=== PATIENT | female | born 1940 | race Caucasian/White ===

== ENCOUNTER 2017-01-29 09:22 | Emergency (ER) | payer OTHER ==
[~2017-01-29] VITALS: Ht 152.4 cm; Wt 69.4 kg
--- NOTE | 2017-01-29 10:40 | REP ---
Clinical: Pain and swelling . Technique: Abbott scale and color Doppler evaluation using linear high frequency transducer. Findings: Ultrasound examination of the right lower extremity deep venous structures from the common femoral vein to the popliteal vein demonstrates normal compressibility flow and wave patterns in response to respiration and augmentation. There is no evidence for deep venous thrombosis. Impression: No evidence for deep venous thrombosis. Signed by Luis A Cade MD 01/29/2017 10:31 A
[2017-01-29 11:05] VITALS: BP 135/90
== END 2017-01-29 11:07 | disposition home or self-care (01) ==
LOC: M ED 09:22
DX: S86.811A Strain of other muscle(s) and tendon(s) at lower leg level, right leg, initial encounter (principal); X58.XXXA Exposure to other specified factors, initial encounter; Y92.89 Other specified places as the place of occurrence of the external cause; Y93.89 Activity, other specified; Y99.8 Other external cause status

== ENCOUNTER → 2017-02-14 | Outpatient (REF) | payer OTHER ==
[2017-02-14 21:23] LABS: ALBUMIN/GLOBULIN RATIO 1.29 (1.00-1.93); ALKALINE PHOSPHATASE 100 U/L (45-117); ALT/SGPT 19 U/L (12-78); ANION GAP 7 MEQ/L (8-16); AST/SGOT 19 U/L (15-37); BILIRUBIN,TOTAL 0.4 MG/DL (0.2-1.0); BLOOD UREA NITROGEN 14 MG/DL (7-18); CALCIUM LEVEL 8.7 MG/DL (8.8-10.2); CARBON DIOXIDE LEVEL 28 MEQ/L (21-32); CHLORIDE LEVEL 105 MEQ/L (98-107); CHOLESTEROL LEVEL 190 MG/DL (<200); CREATININE FOR GFR 0.76 MG/DL (0.55-1.02); GLOMERULAR FILTRATION RATE > 60.0 (>39); GLUCOSE, FASTING 96 MG/DL (83-110); POTASSIUM SERUM 4.8 MEQ/L (3.5-5.1); SODIUM LEVEL 140 MEQ/L (136-145); TOTAL PROTEIN 7.1 GM/DL (6.4-8.2); TRIGLYCERIDES LEVEL 56 MG/DL (<150)
[2017-02-14 21:28] LABS: MEAN CORPUSCULAR HEMOGLOBIN 30.5 pg (27.0-33.0); MEAN CORPUSCULAR HGB CONC 33.4 g/dl (32.0-36.5); MEAN CORPUSCULAR VOLUME 91.5 fl (80.0-96.0); RED CELL DISTRIBUTION WIDTH 13.5 % (11.5-14.5); WHITE BLOOD COUNT 5.7 K/mm3 (4.0-10.0)
== END ==
LOC: M LABDRAW1 18:08
PROVIDERS: ATTEND Nurse Practitioner Adult Health
DX: M25.561 Pain in right knee (principal); R05 Cough; L98.9 Disorder of the skin and subcutaneous tissue, unspecified; Z68.30 Body mass index [BMI] 30.0-30.9, adult

== ENCOUNTER → 2017-02-14 | Outpatient (CLI) | payer OTHER ==
--- NOTE | 2017-02-14 15:22 | REP ---
PA and lateral chest: There are no comparisons. The lung hoyt are clear. The cardiac size is normal The rubi, mediastinum, and bony thorax are unremarkable. Impression: Negative PA and lateral chest. Signed by Roderick Patterson MD 02/14/2017 12:43 P
--- NOTE | 2017-02-14 15:22 | REP ---
Right knee five views: There is faintly visible chondrocalcinosis suggestive of CPPD. There is mild joint space narrowing of the medial compartment and slight osteophytic formation of the medial compartment and patellofemoral compartment. Mineralization is normal. The There is a soft tissue calcification posteromedially, possibly a calcified node. The posterior medial muscle groups of the distal femur appear edematous. This should be correlated with clinical findings. Impression: CPPD. 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 Possible soft tissue edema of the posterior and medial muscle groups of the distal femur. Correlate clinically. Depending on clinical findings consider MRI follow up. Signed by Roderick Patterson MD 02/14/2017 12:46 P
== END ==
LOC: M WUC 12:02
PROVIDERS: ATTEND Nurse Practitioner Adult Health
DX: R05 Cough (principal); M17.11 Unilateral primary osteoarthritis, right knee; L98.9 Disorder of the skin and subcutaneous tissue, unspecified; Z68.30 Body mass index [BMI] 30.0-30.9, adult

== ENCOUNTER → 2017-02-24 | Outpatient (CLI) | payer OTHER ==
[~2017-02-24] MED LIST: METHACHOLINE KIT (J7674) INH ONE
--- NOTE | 2017-02-24 08:29 | PFTRPT ---
Tech: Billy DIAZ RRT Age: 76 Sex: Female Race: Height: 60.00 Inches Weight: 155.00 Lbs BSA: 1.67 Diagnosis: R05 PULMONARY FUNCTION REPORT ORDERING PROVIDER: BERNARD Mooney DATE OF SERVICE: 02/24/17 SPIROMETRY: Excellent technical quality. The forced vital capacity is normal. The FEV1 is in proportion. The obstructive index is, therefore, normal. FLOW VOLUME LOOP: The expiratory limb of the flow volume loop is normal. LUNG VOLUMES: The total lung capacity is normal. The residual volume is in proportion. DIFFUSION CAPACITY: The diffusion capacity is normal. HEMOGLOBIN: No hemoglobin is available for correction. AIRWAY MECHANICS: Airways resistance and conductance are normal. IMPRESSION: Normal study. MTDD
--- NOTE | 2017-02-24 09:19 | PFTRPT ---
Tech: Billy DIAZ RRT Age: 76 Sex: Female Race: Height: 60.00 Inches Weight: 155.00 Lbs BSA: 1.67 Diagnosis: R05 METHACHOLINE CHALLENGE REPORT: ORDERING PROVIDER: BERNARD Mooney DATE OF SERVICE: 02/24/17 INTERPRETATION: The study was of excellent technical quality. Under protocol, methacholine was administered. At a dose of 10 mg (63.875 CDUs), a 30% decline in the FEV1 was noted. The PC20 of 3.59 is significant. Flow rates returned to baseline post bronchodilator administration. IMPRESSION: Positive methacholine challenge study. MTDD
== END ==
LOC: M CARPUL 07:52
PROVIDERS: ATTEND Nurse Practitioner Adult Health
DX: R94.2 Abnormal results of pulmonary function studies (principal)
CPT/HCPCS: 94010; 94070; 94726; 94729; 95070; J7674

== ENCOUNTER → 2021-04-09 | Outpatient (CLI) | payer MEDICARE ==
--- NOTE | 2021-04-09 12:09 | REP ---
INDICATION: SOB, MILD ASTHMA WITH ACUTE EXCERBATION. COMPARISON: 02/14/2017 TECHNIQUE: PA and lateral FINDINGS: The superior mediastinal structures are midline. The cardiac silhouette is unremarkable in size, shape, and position. The diaphragmatic surfaces of the lungs are regular, and the costophrenic angles are clear. The pulmonary hoyt are clear. The imaged osseous structures are intact. IMPRESSION: There is no acute cardiopulmonary disease. <Electronically signed by Te Navarro > 04/09/21 [id number]
== END ==
LOC: M WUC 11:55
PROVIDERS: ATTEND Physician Assistant
DX: R06.02 Shortness of breath (principal); J45.21 Mild intermittent asthma with (acute) exacerbation

== ENCOUNTER → 2021-04-20 | Outpatient (CLI) | payer MEDICARE, OTHER ==
[~2021-04-20] MED LIST changes: +BREO1INH3; +BREO1INH3 INH; -METHACHOLINE KIT (J7674) INH ONE
== END ==
LOC: M LABSMTC 10:22
PROVIDERS: ATTEND Anesthesiology
DX: Z01.818 Encounter for other preprocedural examination (principal); Z11.52 Encounter for screening for COVID-19

== ENCOUNTER 2021-04-24 07:22 | Day surgery (SDC) | payer MEDICARE ==
[~2021-04-24] VITALS: Ht 152.4 cm; Wt 65.2 kg
[~2021-04-24 07:22] MED LIST changes: -BREO1INH3 INH; +CEFUROXIME 1MG/0.1ML INTRACAMERAL INJ As Ordered ONE; +DUOVISC (0.50ML VISCOAT/0.85ML PROVISC) OPHTH KIT As Ordered ONE; +LIDOCAINE 1% SDV 5ML VIAL As Ordered ONE; +PROPARACAINE 0.5% OPHTH SOL 15ML OS ONE
[2021-04-24] MEDS: TROPICAMIDE 1% OPHTH SOLN 2ML OS SCH ×3 (07:53→08:08)
[2021-04-24] MEDS: OFLOXACIN 0.3 % (OCUFLOX) OPTH SOL 5ML OS SCH ×3 (07:53→08:08)
[2021-04-24] MEDS: PHENYLEPHRINE 2.5% OPHTH SOL 2ML OS SCH ×3 (07:54→08:09)
[2021-04-24] MEDS ORDERED: BSS IRR 500ML/OMIDRIA 4ML IRR BAG (OR ONLY) As Ordered ONE (08:04)
[2021-04-24] MEDS ORDERED: propofoL 200 MG/20 ML VIAL As Ordered ONE (09:12)
[2021-04-24] MEDS ORDERED: fentaNYL 100 MCG/2 ML INJECTION (J3010) As Ordered ONE (09:12)
[2021-04-24] MEDS ORDERED: MIDAZOLAM INJ 2MG/2ML VIAL (J2250 PER 1MG) As Ordered ONE (09:12)
[2021-04-24 09:45] VITALS: BP 146/71
--- NOTE | 2021-04-28 19:44 | RO ---
OPERATIVE NOTE DATE OF OPERATION: 04/24/2021 SURGEON: Mirza Rangel Jr, DO PREOPERATIVE DIAGNOSIS: Mature cataract of the left eye. POSTOPERATIVE DIAGNOSIS: Mature cataract of the left eye. PROCEDURE: Phacoemulsification cataract extraction and implantation of intraocular lens, left eye. ANESTHESIA: MAC and topical. COMPLICATIONS: None. ESTIMATED BLOOD LOSS: 0 mL. CONDITION: Excellent to the recovery room with shield over the left eye. LENS: [employer]ry[employer] model SN60AT, power 19.3 diopters. [employer] is 5.07 CDE. INDICATIONS FOR PROCEDURE: The patient experienced decreased vision associated with a cataract formation. She wished to improve her vision and have her cataract removed and intraocular lens placed. She gave informed consent for the above procedure. PROCEDURE NOTE: Prior to entering the operating room, the patient was identified. The left eye was marked as the operative side. She was wheeled supine to the OR suite positioned on a stretcher. Topical tetracaine was placed in both eyes. She was prepped with 5% povidone iodine to the lids and lashes and periocular face. Anesthesia was initiated. The speculum was placed in the left eye. A 1-mm side port was created at the 5:30 position. Then, 1% preservative-free lidocaine was injected. Viscoat was injected. A 2.6-mm stepped, grooved clear corneal incision was made temporally. A bent cystitome needle and Utrata forceps fashioned a continuous curvilinear capsulorhexis. BSS was used to hydrodissect. The lens was found to rotate freely and the capsular bag was phacoemulsified using a [id number] technique. Residual cortex was removed with the IA. Viscoelastic was used to fill the capsular bag. The above mentioned lens was injected using the lens delivery system and positioned using the Blayne hook. BSS was used to hydrate the clear corneal wound. Antibiotic prophylaxis was injected. The speculum was removed from the eye. A shield was taped over the eye. The patient was taken in excellent condition to the recovery room.
== END 2021-04-24 09:50 | disposition home or self-care (01) ==
LOC: M SDC 07:22
PROVIDERS: ATTEND Ophthalmology
DX: H25.12 Age-related nuclear cataract, left eye (principal); J45.909 Unspecified asthma, uncomplicated; Z79.52 Long term (current) use of systemic steroids
CPT/HCPCS: 66984; J1097; J2250; J3010; V2632

== ENCOUNTER → 2021-05-18 | Outpatient (CLI) | payer MEDICARE ==
[~2021-05-18] MED LIST changes: +BREO1INH3 INH; -CEFUROXIME 1MG/0.1ML INTRACAMERAL INJ As Ordered ONE; -DUOVISC (0.50ML VISCOAT/0.85ML PROVISC) OPHTH KIT As Ordered ONE; -LIDOCAINE 1% SDV 5ML VIAL As Ordered ONE; -PROPARACAINE 0.5% OPHTH SOL 15ML OS ONE
== END ==
LOC: M LABSMTC 09:02 → MERGE 09:02
PROVIDERS: ATTEND Anesthesiology
DX: Z01.812 Encounter for preprocedural laboratory examination (principal); Z20.822 Contact with and (suspected) exposure to COVID-19

== ENCOUNTER 2021-05-22 09:43 | Day surgery (SDC) | payer MEDICARE ==
[~2021-05-22] VITALS: Ht 152.4 cm; Wt 66.1 kg
[~2021-05-22 09:43] MED LIST changes: +BSS IRR 500ML/OMIDRIA 4ML IRR BAG (OR ONLY) As Ordered ONE; +CEFUROXIME 1MG/0.1ML INTRACAMERAL INJ As Ordered ONE; +DUOVISC (0.50ML VISCOAT/0.85ML PROVISC) OPHTH KIT As Ordered ONE; +MIDAZOLAM INJ 2MG/2ML VIAL (J2250 PER 1MG) As Ordered ONE; +PHENYLEPHRINE 1.5%/LIDOCAINE 1% INTRAOCULAR 0.8ML SYRINGE As Ordered ONE; +PROPARACAINE 0.5% OPHTH SOL 15ML OD ONE; +fentaNYL 100 MCG/2 ML INJECTION (J3010) As Ordered ONE
--- OUTSIDE RECORDS SUMMARY | 2021-05-22 09:47 | CCD | Continuity of Care Document ---
Author Author Nati PAVON [place] Organization Unknown Address [address] [place] [id number] Phone [phone] Care Team Providers Care Journal Entry Audit Clerk Name Role Phone Ilsa Estrada BERNARD AUTM [phone] Problems Description No Information Available Social History Type Date Description Comments Sex Unknown ETOH Use Occasionally consumes alcohol Tobacco Use Start: Unknown Patient has never smoked Tobacco Use Start: Unknown The Patient Has Never Vaped Smoking Status Reviewed: 04/03/21 The Patient Has Never Vaped Allergies, Adverse Reactions, Alerts Description No Known Drug Allergies Medications Active Medications SIG Qnty Indications Ordering Provide r Date Amoxicillin 875mg Tablets take one tablet every 12 hrs.x 10 days. 20tabs J45.21 Roc Tabares JR., M.D. 04/03/2021 Breo Ellipta 200-25mcg/Inh Aerosol Unknown Immunizations Description No Information Available Vital Signs Date Vital Result Comment 04/03/2021 12:06pm BP Systolic 175 mmHg BP Diastolic 91 mmHg Heart Rate 72 /min Respiratory Rate 18 /min O2 % BldC Oximetry 98 % Body Temperature 98.7 F Weight 138.00 lb Height 60 inches 5'0" BMI (Body Mass Index) 26.9 kg/m2 Pain Level 7 02/01/2020 1:03pm BP Systolic 147 mmHg BP Diastolic 53 mmHg Heart Rate 102 /min Respiratory Rate 17 /min O2 % BldC Oximetry 97 % Body Temperature 98.1 F Weight 138.00 lb Height 60 inches 5'0" BMI (Body Mass Index) 26.9 kg/m2 Pain Level 2 Results Description No Information Available Procedures Date Code Description Status 04/03/2021 43992 Office/Outpatient Established Lo w MDM 20-29 Min Completed Medical Devices Description No Information Available Encounters Type Date Location Provider Dx Diagnosis Office Visit 04/03/2021 9:00a Main Office GABRIELA Barahona J45 .21 Mild intermittent asthma with (acute) exacerbation J06.9 Acute upper respiratory infe ction, unspecified Z20.828 Contact w and exposure to ot h viral communicable diseases Assessments Date Code Description Provider 04/03/2021 J45.21 Mild intermittent asthma with (a cute) exacerbation GABRIELA Barahona 04/03/2021 J06.9 Acute upper respiratory infectio n, unspecified GABREILA Barahona 04/03/2021 Z20.828 Contact with and (marie spected) exposure to other viral communicable diseases GABRIELA Barahona Plan of Treatment No Information Available Functional Status Description No Information Available Mental Status Description No Information Available Referrals Description No Information Available
--- OUTSIDE RECORDS SUMMARY | 2021-05-22 09:47 | CCD | Continuity of Care Document ---
Author Author Nati SALAZAR P.A. Organization Unknown Address [address] [place] [address] [place] [address] Phone [phone] Care Team Providers Care Quarry Plug And Feather Driller Name Role Phone Ilsa Estrada BERNARD AUTM [phone] Problems Description No Information Available Social History Type Date Description Comments Sex Unknown ETOH Use Occasionally consumes alcohol Tobacco Use Start: Unknown Patient has never smoked Tobacco Use Start: Unknown The Patient Has Never Vaped Smoking Status Reviewed: 04/09/21 The Patient Has Never Vaped Allergies, Adverse Reactions, Alerts Description No Known Drug Allergies Medications Active Medications SIG Qnty Indications Ordering Provide r Date Cefdinir 300mg Capsules 1 cap by mouth twice a day for 7 days 14caps J01.90 Lauren Wheeler JR. 04/09/2021 Breo Ellipta 200-25mcg/Inh Aerosol Unknown Ventolin HFA Unknown Mucinex DM 30-600mg Tablets ER 12H R take one in the morning and one at night for cough Un known History Medications Amoxicillin 875mg Tablets take one tablet every 12 hrs.x 10 days. 20tabs J45.21 Roc Tabares JR., M.D. 04/03/2021 - 04/09/2021 Immunizations Description No Information Available Vital Signs Date Vital Result Comment 04/09/2021 11:31am BP Systolic 154 mmHg BP Diastolic 93 mmHg Heart Rate 84 /min Respiratory Rate 24 /min O2 % BldC Oximetry 99 % Body Temperature 98.1 F Weight 138.00 lb Height 60 inches 5'0" BMI (Body Mass Index) 26.9 kg/m2 Pain Level 6 04/03/2021 12:06pm BP Systolic 175 mmHg BP Diastolic 91 mmHg Heart Rate 72 /min Respiratory Rate 18 /min O2 % BldC Oximetry 98 % Body Temperature 98.7 F Weight 138.00 lb Height 60 inches 5'0" BMI (Body Mass Index) 26.9 kg/m2 Pain Level 7 Results Description No Information Available Procedures Date Code Description Status 04/09/2021 37601 Office/Outpatient Established Mo d MDM 30-39 Min Completed 04/03/2021 30489 Office/Outpatient Established Lo w MDM 20-29 Min Completed Medical Devices Description No Information Available Encounters Type Date Location Provider Dx Diagnosis Office Visit 04/09/2021 9:15a Main Office Tal Salazar P.A. R0 6.02 Shortness of breath J45.21 Mild intermittent asthma wit h (acute) exacerbation J01.90 Acute sinusitis, unspecified J06.9 Acute upper respiratory infe ction, unspecified Z20.828 Contact w and exposure to ot h viral communicable diseases Office Visit 04/03/2021 9:00a Main Office GABRIELA Barahona J45 .21 Mild intermittent asthma with (acute) exacerbation J06.9 Acute upper respiratory infe ction, unspecified Z20.828 Contact w and exposure to ot h viral communicable diseases Assessments Date Code Description Provider 04/09/2021 R06.02 Shortness of breath Tal post P.A. 04/09/2021 J45.21 Mild intermittent asthma with (a cute) exacerbation Derian Padilla.A. 04/09/2021 J01.90 Acute sinusitis, unspecified Oscar Salazar P.A. 04/09/2021 J06.9 Acute upper respiratory infectio n, unspecified Tal Salazar P.A. 04/09/2021 Z20.828 Contact with and (marie spected) exposure to other viral communicable diseases Tal Salazar P.A. 04/03/2021 J45.21 Mild intermittent asthma with (a cute) exacerbation GABRIELA Barahona 04/03/2021 J06.9 Acute upper respiratory infectio n, unspecified GABRIELA Barahona 04/03/2021 Z20.828 Contact with and (marie spected) exposure to other viral communicable diseases GABRIELA Barahona Plan of Treatment 04/09/2021 - Alfred Padilla.* R06.02 Shortness of breath * J45.21 Mild intermittent asthma with (acute) exacerbation * J01.90 Acute sinusitis, unspecified* New Medication:* Cefdinir 300 mg - 1 cap by mouth twice a day for 7 days * J06.9 Acute upper respiratory infection, unspecified * Z20.828 Contact with and (suspected) exposure to other viral communicable diseases Functional Status Description No Information Available Mental Status Description No Information Available Referrals Description No Information Available
--- OUTSIDE RECORDS SUMMARY | 2021-05-22 09:47 | CCD ---
Author Author [facility] Organization [facility] Address Unknown Phone Unavailable Care Team Providers Care Breastfeeding Peer Counselor Name Role Phone Jonatan PAVON PA Unavailable Unavailable LETTIERE, A FAREED PA Unavailable Unavailable LETTIERE, A FAREED PA Unavailable Unavailable LETTIERE, Jonatan GUERRIER PA Unavailable Unavailable LETTIERE, A FAREED PA Unavailable Unavailable LETTIERE, A FAREED PA Unavailable Unavailable LETTIERE, A FAREED PA Unavailable Unavailable LETTIERE, A FAREED PA Unavailable Unavailable LETTIERE, A FAREED PA Unavailable Unavailable LETTIERE, A FAREED PA Unavailable Unavailable LETTIERE, A FAREED PA Unavailable Unavailable LETTIERE, A FAREED PA Unavailable Unavailable LETTIERE, A FAREED PA Unavailable Unavailable LETTIERE, A FAREED PA Unavailable Unavailable LETTIERE, A FAREED PA Unavailable Unavailable LETTIERE, A FAREED PA Unavailable Unavailable LETTIERE, A FAREED PA Unavailable Unavailable LETTIERE, A FAREED PA Unavailable Unavailable LETTIERE, A FAREED PA Unavailable Unavailable LETTIERE, A FAREED PA Unavailable Unavailable LETTIERE, A FAREED PA Unavailable Unavailable LETTIERE, A FAREED PA Unavailable Unavailable LETTIERE, A FAREED PA Unavailable Unavailable LETTIERE, A FAREED PA Unavailable Unavailable LETTIERE, A FAREED PA Unavailable Unavailable LETTIERE, A FAREED PA Unavailable Unavailable LETTIERE, A FAREED PA Unavailable Unavailable LETTIERE, A FAREED PA Unavailable Unavailable LETTIERE, A FAREED PA Unavailable Unavailable LETTIERE, A FAREED PA Unavailable Unavailable LETTIERE, A FAREED PA Unavailable Unavailable MARTINTONY RODRIGUEZ PA Unavailable Unavailable MARTIN, TONY PA Unavailable Unavailable MARTIN, TONY PA Unavailable Unavailable MARTIN, TONY PA Unavailable Unavailable MARTIN, TONY PA Unavailable Unavailable MARTIN, TONY PA Unavailable Unavailable MARTIN, TONY PA Unavailable Unavailable MARTIN, TONY PA Unavailable Unavailable MARTIN, TONY PA Unavailable Unavailable MARTIN, TONY PA Unavailable Unavailable MARTIN, TONY PA Unavailable Unavailable MARTIN, TONY PA Unavailable Unavailable MARTIN, TONY PA Unavailable Unavailable MARTIN, TONY PA Unavailable Unavailable MARTIN, TONY PA Unavailable Unavailable MARTIN, TONY PA Unavailable Unavailable MARTIN, TONY PA Unavailable Unavailable MARTIN, TONY PA Unavailable Unavailable MARTIN, TONY PA Unavailable Unavailable MARTIN, TONY PA Unavailable Unavailable MARTIN, TONY PA Unavailable Unavailable MARTIN, TONY PA Unavailable Unavailable MARTIN, TONY PA Unavailable Unavailable MARTIN, TONY PA Unavailable Unavailable MARTIN, TONY PA Unavailable Unavailable MARTIN, TONY PA Unavailable Unavailable MARTIN, TONY PA Unavailable Unavailable MARTIN, TONY PA Unavailable Unavailable MARTIN, TONY PA Unavailable Unavailable MARTIN, TONY PA Unavailable Unavailable MARTIN, TONY PA Unavailable Unavailable MARTIN, TONY PA Unavailable Unavailable MARTIN, TONY PA Unavailable Unavailable MARTIN, TONY PA Unavailable Unavailable MARTIN, TONY PA Unavailable Unavailable MARTIN, TONY PA Unavailable Unavailable Re-disclosure Warning The records that you are about to access may contain information from federally-assisted alcohol or drug abuse programs. If such information is present, then the following federally mandated warning applies: This information has been disclosed to you from records protected by federal confidentiality rules (42 CFR part 2). The federal rules prohibit you from making any further disclosure of this information unless further disclosure is expressly permitted by the written consent of the person to whom it pertains or as otherwise permitted by 42 CFR part 2. A general authorization for the release of medical or other information is NOT sufficient for this purpose. The Federal rules restrict any use of the information to criminally investigate or prosecute any alcohol or drug abuse patient.The records that you are about to access may contain highly sensitive health information, the redisclosure of which is protected by Article 27-F of the [place] State Public Health law. If you continue you may have access to information: Regarding HIV / AIDS; Provided by facilities licensed or operated by the [facility] Office of Mental Health; or Provided by the [facility] Office for People With Developmental Disabilities. If such information is present, then the following [facility] mandated warning applies: This information has been disclosed to you from confidential records which are protected by state law. State law prohibits you from making any further disclosure of this information without the specific written consent of the person to whom it pertains, or as otherwise permitted by law. Any unauthorized further disclosure in violation of state law may result in a fine or intermediate sentence or both. A general authorization for the release of medical or other information is NOT sufficient authorization for further disc losure. Family History Family Member Name Family Member Gender Family Member Status Date o f Status Description Data Source(s) Unknown Unknown Problem MEDENT ([facility]) father and two siblings Unknown Male Problem MEDENT ([facility]) Encounters Encounter Providers Location Date Indications Data Source(s ) [place] [address] [facility] [address] 04/20/2021 12:00:00 AM EDT eCW1 ([facility]) [place] [address] [facility] [address] 04/20/2021 12:00:00 AM EDT eCW1 ([facility]) Outpatient Attender: TONY Mcdanielsa ry 04/09/2021 09:15:00 AM EDT MED[facility] ([facility]) Outpatient Attender: FAREED Gutierrez Prim bandar 04/03/2021 09:00:00 AM EDT MEDENT ([facility]) Immunizations Vaccine Date Status Description Data Source(s) Pfizer #2 dose COVID-19 SARSCOV2 VAC 30MCG/0.3ML IM 01/11/20 21 12:31:00 PM EDT completed eCW1 ([facility]) Pfizer #2 dose COVID-19 SARSCOV2 VAC 30MCG/0.3ML IM 01/11/20 21 12:31:00 PM EDT completed eCW1 ([facility]) COVID-19 VACCINE Pfizer 01/10/2021 12:00:00 AM EDT completed [facility] Vaccine Series Complete: YESThis Data wa s Submitted to [facility] Via [employer]. COVID-19 VACC, MRNA(PFIZER)/PF 01/10/2021 12:00:00 AM EDT completed [facility] Pfizer #1 dose COVID-19 SARSCOV2 VAC 30MCG/0.3ML IM 12/21/19 21 12:30:00 PM EDT completed eCW1 ([facility]) Pfizer #1 dose COVID-19 SARSCOV2 VAC 30MCG/0.3ML IM 12/21/19 21 12:30:00 PM EDT completed eCW1 ([facility]) COVID-19 VACCINE Pfizer 12/20/2020 12:00:00 AM EDT completed [facility] Vaccine Series Complete: NOThis Data was Submitted to [facility] Via [employer]. COVID-19 VACC, MRNA(PFIZER)/PF 12/20/2020 12:00:00 AM EDT completed [facility] Medications Medication Brand Name Start Date Product Form Dose Route Admi nistrative Instructions Pharmacy Instructions Status Indications Reaction Description Data Source(s) Flonase Allergy Relief 50 MCG/ACT Flonase Allergy Relief 50 MCG/ACT 04/20/2021 12:00:00 AM EDT 2.0 {sprays_in_each_nostril} act annamaria Flonase Allergy Relief 50 MCG/ACT eCW1 ([facility]) Flonase Allergy Relief 50 MCG/ACT Flonase Allergy Relief 50 MCG/ACT 04/20/2021 12:00:00 AM EDT 2.0 {sprays_in_each_nostril} act annamaria Flonase Allergy Relief 50 MCG/ACT eCW1 ([facility]) cefdinir 300 MG Oral Capsule Cefdinir 04/09/2021 12:00:00 AM EDT ORAL active MEDENT ([facility]) Amoxicillin 875 MG Oral Tablet Amoxicillin 04/03/2021 12:00:00 AM EDT completed [facility] ([facility]) Insurance Providers Payer name Policy type / Coverage type Policy ID Covered libertarian ID Covered libertarian's relationship to everett Policy [place] Plan Information [employer] [id number] Self [id number] [employer] [id number] Self [id number] [employer] [id number] ..[id number] Self [id number] [employer] Commercial [id number] .[id number] Self [id number] [employer] Commercial [id number] ..[id number] Self [id number] [employer] Commercial [id number] Self [id number] [employer] Commercial [id number] ..[id number] Self [id number] [employer] Commercial [id number] Self [id number] [employer] Commercial [id number] .[id number] 790.0 Self [id number] TOD[employer] OPTIONS [id number] SP [id number] Today's Option Medicare Commercial [id number] Self [id number] WELL[employer]ARE [id number] SP [id number] [employer] OPTIONS/ETHIOPIAN O [id number] O [id number] WELLCARE [id number] SP [id number] TODAYS OPTIONSDO NOT USE [id number] SP [id number] [facility]-Medicare Part B [id number] [facility] Part B [id number] Self YO [id number] [employer] Medicare Commercial [id number] Self [id number] [employer] Medicare Commercial [id number] Self [id number] [employer] Medicare Commercial [id number] Self [id number] Problems, Conditions, and Diagnoses No Information Surgeries/Procedures Procedure Description Date Indications Data Source(s) ECG ROUTINE ECG W/LEAST 12 LDS W/I&R 04/20/2021 12:00: 00 AM EDT eCW1 ([facility]) OFFICE OUTPATIENT VISIT 25 MINUTES 04/09/2021 12:00:00 AM EDT MEDENT ([facility]) OFFICE OUTPATIENT VISIT 15 MINUTES 04/03/2021 12:00:00 AM EDT MEDENT ([facility]) Results ID Date Data Source [id number] 04/20/2021 11:05:00 AM EDT [facility] Name Value Range Interpretation Code Description Data Rebecca rce(s) Supporting Document(s) SARS-CoV-2 (COVID-19) RNA [Presence] in Respiratory specimen by ECTOR with probe detection Not Detected [facility] This lab was ordered by [facility] and reported by [email or web address]. ID Date Data Source [id number] 04/09/2021 12:00:00 AM EDT [facility] Name Value Range Interpretation Code Description Data Rebecca rce(s) Supporting Document(s) SARS-CoV2 Rapid Antigen Negative [facility] This lab was reported by [facility]. Procedure Social History Code Duration Value Status Description Data Source(s ) Smoking 04/20/2021 12:00:00 AM EDT Never Smoker completed Never S moker eCW1 ([facility]) Smoking 04/20/2021 12:00:00 AM EDT Never Smoker completed Never S moker eCW1 ([facility]) Vital Signs ID Date Data Source UNK Name Value Range Interpretation Code Description Data Source(s) Body weight 146.2 [lb_av] 146.2 [lb_av] eCW1 ([facility]) Body height [in_i] eCW1 ([facility]) Body mass index (BMI) [Ratio] 28.55 kg/m2 28.55 kg/m2 eCW1 ([facility]) Heart rate 91 /min 91 /min eCW1 ([facility]) Respiratory rate 18 /min 18 /min eCW1 ([facility]) Body temperature 97.2 [degF] 97.2 [degF] eCW1 ( [facility]) Systolic blood pressure 166 mm[Hg] 166 mm[Hg] e CW1 ([facility]) Diastolic blood pressure 86 mm[Hg] 86 mm[Hg] eCW1 ([facility]) Systolic blood pressure 154 mm[Hg] 154 mm[Hg] M EDENT ([facility]) Diastolic blood pressure 93 mm[Hg] 93 mm[Hg] MEDENT ([facility]) Heart rate 84 /min 84 /min MEDENT ([facility]) Respiratory rate 24 /min 24 /min MEDENT ( [facility]) Oxygen saturation in Arterial blood by Pulse oximetry 99 % 99 % MEDENT ([facility], [facility]) Body temperature 98.1 [degF] 98.1 [degF] MEDENT ([facility], [facility]) Body weight 138.00 [lb_av] 138.00 [lb_av] MEDEN T ([facility], [facility]) Body height 60 [in_i] 60 [in_i] MEDENT ([facility]) 5'0" Body mass index (BMI) [Ratio] 26.9 kg/m2 26.9 k g/m2 [facility] ([facility], [facility]) Heart rate 72 /min 72 /min [facility] ([facility], [facility]) Systolic blood pressure 175 mm[Hg] 175 mm[Hg] M EDENT ([facility], [facility]) Diastolic blood pressure 91 mm[Hg] 91 mm[Hg] [facility] ([facility]) Respiratory rate 18 /min 18 /min [facility] ( [facility]) Oxygen saturation in Arterial blood by Pulse oximetry 98 % 98 % [facility] ([facility], [facility]) Body temperature 98.7 [degF] 98.7 [degF] [facility] ([facility]) Body weight 138.00 [lb_av] 138.00 [lb_av] MEDEN T ([facility], [facility]) Body height 60 [in_i] 60 [in_i] [facility] ([facility]) 5'0" Body mass index (BMI) [Ratio] 26.9 kg/m2 26.9 k g/m2 [facility] ([facility]) Patient Treatment Plan of Care Planned Activity Planned Date Details Description Data Source (s) Flonase Allergy Relief 50 MCG/ACT 04/20/2021 12:00:00 AM EDT eCW1 ([facility]) Flonase Allergy Relief 50 MCG/ACT 04/20/2021 12:00:00 AM EDT eCW1 ([facility])
--- OUTSIDE RECORDS SUMMARY | 2021-05-22 09:47 | CCD ---
Author Author [facility] Organization [facility] Address Unknown Phone Unavailable Care Team Providers Care Pump House Operator Name Role Phone Leonel Vang Unavailable PROBLEMS Type Condition ICD9-CM Code [id number] Code Onset Dates Condition S tatus W/U Status Risk SNOMED Code Notes Problem Seasonal allergies J30.2 Active confirmed [id number] She should use Flonase for her seasonal allergies. 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 ; Mild intermittent reactive airway disease without complication J45.20 ; Seasonal allergies J30.2 and Impacted cerumen of both ears H61.23 IMMUNIZATIONS Vaccine Route Administration Date Status Pfizer #2 dose COVID-19 SARSCOV2 VAC 30MCG/0.3ML IM Unknown January 10, 2021 Administered Pfizer #1 dose COVID-19 SARSCOV2 VAC 30MCG/0.3ML IM Unknown December 20, 2020 Administered Influenza (High Dose 65 & up) IM Intramuscular Jun 21, 2017 A dministered Influenza (High Dose 65 & up) Unknown May 03, 2016 Ad ministered Pneumococcal 0.5mL Prevnar 13 Unknown Apr 14, 2015 Ad ministered SOCIAL HISTORY Tobacco Use: Social History Observation Description Date Details (start date - stop date) Never Smoker Sex Assigned At : Social History Observation Description Sex Assigned At Unknown Education: Question Answer Notes Level of Education: high school 2 yrs co llege Audit Question Answer Notes Total Score: 1 Interpretation: Alcohol Education Language: Question Answer Notes Languages spoken: Palestinian Adventism: Question Answer Notes Adventism 21 Bahai Sexual Hx: Question Answer Notes Had sex in the last 12 months (vaginal, oral, or anal)? No Have you ever had an STD? No Alcohol Screening: Question Answer Notes Did you have a drink containing alcohol in the past year? Ye s Points 4 Interpretation Positive How often did you have six or more drinks on one occas ion in the past year? Never (0 points) How many drinks did you have on a typica l day when you were drinking in the past year? 1 or 2 (0 points) How often did you have a drink containing alcohol in t he past year? Four or more times a week (4 points) BMI Care Goal Follow-Up Question Answer Notes Above Normal BMI Follow-Up Giving encouragement to exercise Tobacco Use: Question Answer Notes Are you a: never smoker REASON FOR REFERRAL No Information VITAL SIGNS Weight 146.2 lbs Apr, Height 5'0" in Apr, BMI 28.55 kg/m2 Apr, Heart Rate 91 /min Apr, Respiratory Rate 18 /min Apr, Temperature 97.2 degrees Fahrenheit Apr, Oximetry 96% Apr, Blood pressure systolic 166 mm Hg Apr, Blood pressure diastolic 86 mm Hg Apr, MEDICATIONS Medication SIG (Take, Route, Frequency, Duration) Notes Start Da te End Date Status Flonase Allergy Relief 50 MCG/ACT 2 sprays in each nos tril Nasally Once a day for 30 day(s) Apr, Active Albuterol Sulfate HFA 108 (90 Base) MCG/ACT 2 puffs as needed Inhalation every 4 hrs for 30 days Active Breo Ellipta 200-25 MCG/INH INHALE 1 PUFF BY MOUTH ONCE A DAY 90 for 90 Active ZyrTEC Allergy 10 MG 1 tablet Orally once daily as needed over t he counter prn Active PROCEDURES from 1942 to 2021-04-23 Procedure Date Ordered Result Body Site ELECTROCARDIOGRAM, COMPLETE EKG 2021-04-20 N/A RESULTS No Results REASON FOR VISIT Pre-operative clearance for left eye cataract preformed by Dr. Rangel at [facility] o n April 24, 2021 under anesthesia. DX: H25.12 MEDICAL (GENERAL) HISTORY Type Description Date Medical History heart murmur, uninvestigated Medical History 11/12 CXR with COPD Medical History diverticulosis Medical History Refuses Mammo. 02/13/18. 03/19/19 Medical History Refuses Colonoscopy.02/13/18 03/19/19 Surgical History appendectomy as a child Surgical History Hysterectomy 1970 Surgical History Right knee arthroscopy with partial medi al meniscectomy 06/28/2017 Surgical History Left eye cataract-Dr. Rangel Surgical History Right eye cataract extraction is anticip ated 05/2021 Hospitalization History Childbirth x4 1963,1964,1965,1 970 Hospitalization History Bronchitis 2015 Goals Section No Information Health Concerns No Information MEDICAL EQUIPMENT No Information MENTAL STATUS No Information FUNCTIONAL STATUS No Information ASSESSMENTS Encounter Date Diagnosis Assessment Notes Treatment Notes Treatm ent Clinical Notes Apr, Preop examination (ICD-10 - Z01.818) She is a low risk woman undergoing low risk cataract surgery in the near future. There is no need for further preoperative testing. She is stable for surgery. She does not need to hold any of her medications prior to surgery. Apr, Cortical age-related cataract of both eyes (ICD- 10 - H25.013) Apr, Mild intermittent reactive a irway disease without complication (ICD-10 - J45.20) She is on Breo therapy, with albuterol a s a rescue inhaler. 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 Apr, Seasonal allergies (ICD-10 - J30.2) She should use Flonase for her seasonal allergies. Apr, Impacted cerumen of both ears (ICD-10 - H61.23) Cleared with irrigation. PLAN OF TREATMENT Medication Medication Name Sig Start Date Stop Date Albuterol Sulfate HFA 108 (90 Base) MCG/ACT 2 puffs as needed Inhalation every 4 hrs for 30 days Flonase Allergy Relief 50 MCG/ACT 2 sprays in each nos tril Nasally Once a day for 30 day(s) Apr, Next Appt Details As scheduled Reason: Provider Name:Ilsa Estrada, 01:30:00 PM, [address] [facility] [address], , [place], [address], Insurance Providers Payer Name Payer Address Payer Phone Insured Name Patient Relati onship to Insured Coverage Start Date Coverage End Date [facility] PL[facility] [address] [address] [facility] [id number] CLEO BROWN self
--- OUTSIDE RECORDS SUMMARY | 2021-05-22 09:47 | CCD | Continuity of Care Document ---
Author Author Nati SALAZAR P.A. Organization Unknown Address [address] [place] [address] [place] [address] Phone [phone] Care Team Providers Care Heel Builder Machine Name Role Phone Ilsa Estrada BERNARD AUTM [phone] Problems Description No Information Available Social History [...] M.D. 04/03/2021 Breo Ellipta 200-25mcg/Inh Aerosol Unknown Ventolin HFA Unknown Mucinex DM 30-600mg Tablets ER 12H R take one in the morning and one at night for cough Un known Immunizations Description No Information Available Vital Signs [...] Available Procedures Date Code Description Status 04/09/2021 94565 Office/Outpatient Established Mo d MDM 30-39 Min Completed 04/03/2021 00690 Office/Outpatient Established Lo w MDM 20-29 Min Completed Medical Devices Description No Information Available Encounters Type Date Location Provider Dx Diagnosis Office Visit 04/09/2021 9:15a Main Office Tal Salazar, P.A. R0 6.02 Shortness of breath J45.21 [...] Provider 04/09/2021 R06.02 Shortness of breath Tal post, P.A. 04/09/2021 J45.21 Mild intermittent asthma with (a cute) exacerbation Tal Salazar, P.A. 04/09/2021 J01.90 Acute sinusitis, unspecified Oscar Salazar, P.A. 04/09/2021 J06.9 Acute upper respiratory infectio n, unspecified Tal Salazar, P.A. 04/09/2021 Z20.828 Contact with and (marie spected) exposure to other viral communicable diseases Tal Salazar, P.A. 04/03/2021 J45.21 Mild intermittent asthma with [...]
--- OUTSIDE RECORDS SUMMARY | 2021-05-22 09:47 | CCD | Continuity of Care Document ---
Author Author Nati PAVON SC Organization Unknown Address [address] [place] [address] Phone [phone] Care Team Providers Care Sand Slinger Operator Name Role Phone Ilsa Estrada BERNARD AUTM [phone] Problems Description No Information Available Social History [...] Available Procedures Date Code Description Status 04/03/2021 58051 Office/Outpatient Established Lo w MDM 20-29 Min [...]
--- OUTSIDE RECORDS SUMMARY | 2021-05-22 09:47 | CCD ---
Author Author [facility] Organization [facility] Address Unknown Phone Unavailable Care Team Providers Care Morgue Librarian Name Role Phone Ilsa Estrada Unavailable PROBLEMS Type Condition ICD9-CM Code UMO47-[id number] Code Onset Dates Condition S tatus W/U Status Risk SNOMED Code Notes Problem Seasonal allergies J30.2 Active confirmed 4 [id number] She should use Flonase for her seasonal allergies. 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 Problem Skin lesion L98.9 Active confirmed [id number] Problem Acute pain of right knee M25.561 Active confirmed [id number] Problem BMI 30.0-30.9,adult Z68.30 Active confirmed [id number] ALLERGIES No Known Allergies ENCOUNTERS from 1940 to 2021-04-21 Encounter Location Date Provider Diagnosis [address] [phone] [place] [address] Apr, Ilsa Estrada IMMUNIZATIONS Vaccine Route Administration Date Status Pfizer [...] Education Language: Question Answer Notes Languages spoken: Khmer Methodist: Question Answer Notes Methodist 21 Yazdanism Sexual Hx: Question Answer Notes Had sex [...] REASON FOR REFERRAL No Information VITAL SIGNS No information MEDICATIONS Medication SIG (Take, Route, Frequency, Duration) [...] over t he counter prn Active PROCEDURES No Information RESULTS No Results REASON FOR VISIT pre op note MEDICAL (GENERAL) HISTORY Type Description Date Medical History heart murmur, uninvestigated Medical History 11/12 CXR with COPD Medical History diverticulosis Medical History Refuses Mammo. 02/13/18. 03/19/19 Medical History Refuses Colonoscopy.02/13/18 03/19/19 Surgical History appendectomy as a child Surgical History Hysterectomy 1969 Surgical History Right knee arthroscopy with partial medi al meniscectomy 06/28/2017 Surgical History Left eye cataract-Dr. Rangel Surgical History Right eye cataract extraction is anticip ated 05/2021 Hospitalization History Childbirth x4 1963,1964,1965,1 970 Hospitalization History Bronchitis 2015 Goals Section No Information Health Concerns No Information MEDICAL EQUIPMENT No Information MENTAL STATUS No Information FUNCTIONAL STATUS No Information ASSESSMENTS No Information PLAN OF TREATMENT Medication Medication Name Sig Start Date Stop Date Albuterol Sulfate HFA 108 (90 Base) MCG/ACT 2 puffs as needed Inhalation every 4 hrs for 30 days Flonase Allergy Relief 50 MCG/ACT 2 sprays in each nos tril Nasally Once a day for 30 day(s) Apr, Next Appt Details Provider Name:Ilsa Spangler Sean, 01:30:00 PM, [address] [facility], , [place], [address], Insurance Providers Payer Name Payer Address Payer Phone Insured Name Patient Relati onship to Insured Coverage Start Date Coverage End Date [facility] [address] [address] [facility] [phone] CLEO BROWN self
[2021-05-22] MEDS: PHENYLEPHRINE 2.5% OPHTH SOL 2ML OD SCH ×3 (10:21→10:42)
[2021-05-22] MEDS: OFLOXACIN 0.3 % (OCUFLOX) OPTH SOL 5ML OD SCH ×3 (10:21→10:42)
[2021-05-22] MEDS: TROPICAMIDE 1% OPHTH SOLN 2ML OD SCH ×3 (10:21→10:42)
[2021-05-22 12:20] VITALS: BP 188/83
--- NOTE | 2021-05-22 14:04 | ROOPDOC ---
[facility] Report Of Operation Report of Operation PREPROCEDURE DIAGNOSES: Mature cataract right eye. POSTPROCEDURE DIAGNOSES: Same. PROCEDURE PERFORMED: Phacoemulsification cataract extraction implantation intraocular lens right eye. SURGEON: Gera Bell MD UG DESIGNER: None ANESTHESIA: MAC. ESTIMATED BLOOD LOSS: Approximately 0 cc mL. COMPLICATIONS: None. LENS: 20.5. diopters SPECIMENS REMOVED: None INDICATIONS: Patient experienced decreased vision associated with cataract formation. Slit-lamp examination confirmed the diagnosis. Informed consent was obtained for removal of the cataract and placement of intraocular lens. PROCEDURE NOTE: Patient was identified in the holding room and the operative eye was marked. Patient was wheeled spine the OR suite and positioned on the stretcher. The lids lashes and periocular face of the operative eye were prepped with 5% povidone iodine. The lashes were taped with a Tegaderm dressing. A speculum was placed in the operative eye. 1 mm side-port was created. 1% preservative-free lidocaine was injected. Viscoat was injected. A 2.6 mm stepped groove clear cornea incision was made temporally. A bent cystotome needle and Utrata forceps were used to fashion a continuous curvilinear capsulorhexis. BSS was used to hydrodissect. The lens was found to rotate freely. The lens was phacoemulsified using a divide and conquer technique. Residual cortex was removed with the I/A. Provisc was injected to expand the capsular bag. The lens was injected using the lens delivery system and positioned with a Blayne hook. Residual viscoelastic was removed with the I/A. BSS was used to hydrate the corneal wound. Antibiotic prophylaxis was injected. The speculum was removed from the eye. A shield was taped over the eye. The patient was sent in excellent condition to the recovery room with a shield. GERA BELL M.D. May 22, 2021 14:04
== END 2021-05-22 12:25 | disposition home or self-care (01) ==
LOC: M SDC 09:43
PROVIDERS: ATTEND Ophthalmology
DX: H25.89 Other age-related cataract (principal); J45.909 Unspecified asthma, uncomplicated; Z79.51 Long term (current) use of inhaled steroids
CPT/HCPCS: 66984; J1097; J2250; J3010; V2632

== ENCOUNTER → 2021-07-16 | Outpatient (CLI) | payer MEDICARE ==
[~2021-07-16] MED LIST changes: -BSS IRR 500ML/OMIDRIA 4ML IRR BAG (OR ONLY) As Ordered ONE; -CEFUROXIME 1MG/0.1ML INTRACAMERAL INJ As Ordered ONE; -DUOVISC (0.50ML VISCOAT/0.85ML PROVISC) OPHTH KIT As Ordered ONE; -MIDAZOLAM INJ 2MG/2ML VIAL (J2250 PER 1MG) As Ordered ONE; -PHENYLEPHRINE 1.5%/LIDOCAINE 1% INTRAOCULAR 0.8ML SYRINGE As Ordered ONE; -PROPARACAINE 0.5% OPHTH SOL 15ML OD ONE; -fentaNYL 100 MCG/2 ML INJECTION (J3010) As Ordered ONE
[2021-07-16 13:18] LABS: BASO # 0.1 10^3/uL (0.0-0.2); BASO % 0.6 % (0.0-1.0); EOS % 0.5 % (0.0-3.0); HEMATOCRIT 44.1 % (36.0-47.0); HEMOGLOBIN 14.3 g/dl (12.0-15.5); LYMPH # 1.2 10^3/uL (1.5-5.0); LYMPH % 14.5 % (24.0-44.0); MEAN CORPUSCULAR HEMOGLOBIN 29.3 pg (27.0-33.0); MEAN CORPUSCULAR HGB CONC 32.4 g/dl (32.0-36.5); MEAN CORPUSCULAR VOLUME 90.4 fl (80.0-96.0); MONO # 0.8 10^3/uL (0.0-0.8); MONO % 9.4 % (2.0-8.0); NEUTROPHILS # 6.4 10^3/uL (1.5-8.5); NEUTROPHILS % 74.6 % (36.0-66.0); PLATELET COUNT, AUTOMATED 361 10^3/uL (150-450); RED BLOOD COUNT 4.88 10^6/uL (4.00-5.40); WHITE BLOOD COUNT 8.5 10^3/uL (4.0-10.0)
[2021-07-16 13:54] LABS: RHEUMATOID FACTOR QUANT < 10.0 IU/ML (<15.0)
[2021-07-16 14:11] LABS: ERYTHROCYTE SEDIMENTATION RATE 34 mm/hr (0-30)
[2021-07-17 16:08] LABS: ANTI DOUBLE STRAND-DNA AB <1 IU/mL (0-9); ANTINUCLEAR ANTIBODIES DIRECT Positive (Negative); Lyme Disease IgG/IgM Antibodie <0.91 ISR (0.00-0.90); Lyme Disease IgM Ab Quantitati <0.80 index (0.00-0.79); RNP ANTIBODIES 1.1 AI (0.0-0.9); SJOGREN'S ANTI SS-A <0.2 AI (0.0-0.9); SJOGREN'S ANTI SS-B <0.2 AI (0.0-0.9); SMITH ANTIBODIES <0.2 AI (0.0-0.9)
== END ==
LOC: M PLALAB 11:16
PROVIDERS: ATTEND Orthopaedic Surgery
DX: M19.041 Primary osteoarthritis, right hand (principal)

== ENCOUNTER → 2021-12-21 | Outpatient (REF) | payer MEDICARE ==
[2021-12-21 16:39] LABS: HEMATOCRIT 46.1 % (36.0-47.0); HEMOGLOBIN 14.6 g/dl (12.0-15.5); MEAN CORPUSCULAR HEMOGLOBIN 28.1 pg (27.0-33.0); MEAN CORPUSCULAR HGB CONC 31.7 g/dl (32.0-36.5); MEAN CORPUSCULAR VOLUME 88.8 fl (80.0-96.0); PLATELET COUNT, AUTOMATED 258 10^3/uL (150-450); RED BLOOD COUNT 5.19 10^6/uL (4.00-5.40); WHITE BLOOD COUNT 8.8 10^3/uL (4.0-10.0)
[2021-12-21 17:09] LABS: ALBUMIN 3.6 GM/DL (3.2-5.2); ALT/SGPT 19 U/L (12-78); BILIRUBIN,TOTAL 0.4 MG/DL (0.2-1.0); BLOOD UREA NITROGEN 21 MG/DL (7-18); CARBON DIOXIDE LEVEL 28 MEQ/L (21-32); CHLORIDE LEVEL 105 MEQ/L (98-107); CHOLESTEROL LEVEL 192 MG/DL (<200); CHOLESTEROL RISK RATIO 2.666 (<5); GLOMERULAR FILTRATION RATE > 60.0 (>39); GLUCOSE, FASTING 87 MG/DL (70-100); HDL CHOLESTEROL 72 MG/DL (>40); LDL CHOLESTEROL 102 MG/DL (<100); NON-HDL-C 120 MG/DL; POTASSIUM SERUM 5.2 MEQ/L (3.5-5.1); SODIUM LEVEL 138 MEQ/L (136-145); TOTAL PROTEIN 7.1 GM/DL (6.4-8.2); TRIGLYCERIDES LEVEL 89 MG/DL (<150)
== END ==
LOC: M SFHCCLAY 10:41
PROVIDERS: ATTEND Nurse Practitioner Family
DX: I10 Essential (primary) hypertension (principal)

== ENCOUNTER → 2021-12-24 | Outpatient (REF) | payer MEDICARE | LOC: M SFHCCLAY 08:37 | PROVIDERS: ATTEND Nurse Practitioner Family | DX: E87.5 Hyperkalemia (principal) ==

== ENCOUNTER → 2022-01-20 | Outpatient (REF) | payer MEDICARE ==
[2022-01-20 17:08] LABS: BASO % 0.5 % (0.0-1.0); EOS % 0.5 % (0.0-3.0); HEMATOCRIT 43.7 % (36.0-47.0); HEMOGLOBIN 13.9 g/dl (12.0-15.5); LYMPH # 1.8 10^3/uL (1.5-5.0); LYMPH % 22.7 % (24.0-44.0); MEAN CORPUSCULAR HEMOGLOBIN 28.8 pg (27.0-33.0); MEAN CORPUSCULAR HGB CONC 31.8 g/dl (32.0-36.5); MEAN CORPUSCULAR VOLUME 90.7 fl (80.0-96.0); MONO # 0.6 10^3/uL (0.0-0.8); MONO % 7.9 % (2.0-8.0); NEUTROPHILS # 5.3 10^3/uL (1.5-8.5); NEUTROPHILS % 67.9 % (36.0-66.0); PLATELET COUNT, AUTOMATED 287 10^3/uL (150-450); RED BLOOD COUNT 4.82 10^6/uL (4.00-5.40); WHITE BLOOD COUNT 7.8 10^3/uL (4.0-10.0)
[2022-01-20 17:21] LABS: CREATININE,RANDOM URINE 34.9 MG/DL; TOTAL PROTEIN,RANDOM URINE 9.1 MG/DL (0.0-12.0)
[2022-01-20 17:28] LABS: ALBUMIN 3.8 GM/DL (3.2-5.2); ALT/SGPT 20 U/L (12-78); BILIRUBIN,TOTAL 0.4 MG/DL (0.2-1.0); BLOOD UREA NITROGEN 15 MG/DL (7-18); CALCIUM LEVEL 9.6 MG/DL (8.8-10.2); CARBON DIOXIDE LEVEL 27 MEQ/L (21-32); CHLORIDE LEVEL 106 MEQ/L (98-107); COMPLEMENT C3 104 MG/DL (90-180); COMPLEMENT C4 32 MG/DL (10-40); CREATININE FOR GFR 0.81 MG/DL (0.55-1.30); GLOMERULAR FILTRATION RATE > 60.0 (>39); GLUCOSE, FASTING 93 MG/DL (70-100); POTASSIUM SERUM 4.5 MEQ/L (3.5-5.1); SODIUM LEVEL 141 MEQ/L (136-145); TOTAL PROTEIN 7.3 GM/DL (6.4-8.2)
[2022-01-20 18:51] LABS: APPEARANCE, URINE HAZY (CLEAR); BACTERIA, URINE AUTO 1+ (NEGATIVE); BILIRUBIN, URINE AUTO NEGATIVE (NEGATIVE); BLOOD, URINE BLOOD 1+ (NEGATIVE); COLOR, URINE YELLOW (YELLOW); GLUCOSE, URINE (UA) AUTO NEGATIVE (NEGATIVE); KETONE, URINE AUTO NEGATIVE (NEGATIVE); LEUKOCYTE ESTERASE, URINE AUTO 3+ (NEGATIVE); NITRITE, URINE AUTO POSITIVE (NEGATIVE); PROTEIN, URINE AUTO NEGATIVE (NEGATIVE); RBC, URINE AUTO 1 /HPF (0-3); SPECIFIC GRAVITY URINE AUTO 1.008 (1.002-1.035); SQUAMOUS EPITHELIAL CELL UR AU 0 /HPF (0-6); UROBILINOGEN, URINE AUTO 0.2 mg/dL (0.0-2.0); WBC, URINE AUTO 56 /HPF (0-3)
[2022-01-20 19:32] LABS: ERYTHROCYTE SEDIMENTATION RATE 12 mm/hr (0-30)
== END ==
LOC: M SFHCRHEU 13:04
PROVIDERS: ATTEND Internal Medicine Rheumatology
DX: M25.50 Pain in unspecified joint (principal); R76.8 Other specified abnormal immunological findings in serum; R79.82 Elevated C-reactive protein (CRP)

== ENCOUNTER → 2022-01-21 | Outpatient (CLI) | payer MEDICARE | LOC: M CLY 08:47 | PROVIDERS: ATTEND Internal Medicine Rheumatology | DX: M25.50 Pain in unspecified joint (principal); R76.8 Other specified abnormal immunological findings in serum; R79.82 Elevated C-reactive protein (CRP) ==

== ENCOUNTER → 2022-12-08 | Outpatient (REF) | payer MEDICARE ==
[2022-12-08 18:15] LABS: ALBUMIN 3.7 G/DL (3.2-5.2); BILIRUBIN,TOTAL 0.4 MG/DL (0.3-1.2); CALCIUM LEVEL 9.1 MG/DL (8.3-10.6); CREATININE FOR GFR 1.34 MG/DL (0.55-1.30); GLOMERULAR FILTRATION RATE 40.5 (>32); POTASSIUM SERUM 4.1 MMOL/L (3.5-5.1); TOTAL PROTEIN 6.6 G/DL (5.7-8.2)
== END ==
LOC: M SFHCCLAY 14:09
PROVIDERS: ATTEND Nurse Practitioner Family
DX: I10 Essential (primary) hypertension (principal); M19.90 Unspecified osteoarthritis, unspecified site

== ENCOUNTER → 2023-02-04 | Outpatient (CLI) | payer MEDICARE | LOC: M RAD 10:44 | PROVIDERS: ATTEND Internal Medicine Rheumatology | DX: R76.8 Other specified abnormal immunological findings in serum (principal); R79.82 Elevated C-reactive protein (CRP); Z15.89 Genetic susceptibility to other disease; M16.0 Bilateral primary osteoarthritis of hip; R60.0 Localized edema ==

== ENCOUNTER → 2023-12-16 | Outpatient (REF) | payer MEDICARE ==
[2023-12-16 18:25] LABS: ALBUMIN 3.6 G/DL (3.2-5.2); ALKALINE PHOSPHATASE 118 U/L (46-116); ALT/SGPT 18 U/L (7.0-40); AST/SGOT 18 U/L (<34); BILIRUBIN,TOTAL 0.4 MG/DL (0.3-1.2); BLOOD UREA NITROGEN 16 MG/DL (9-23); CALCIUM LEVEL 9.5 MG/DL (8.3-10.6); CARBON DIOXIDE LEVEL 29 MMOL/L (20-31); CHLORIDE LEVEL 107 MMOL/L (98-107); CHOLESTEROL LEVEL 199 MG/DL (<200); CHOLESTEROL RISK RATIO 2.88 (<5); CREATININE FOR GFR 0.92 MG/DL (0.55-1.30); GLOMERULAR FILTRATION RATE > 60.0 (>32); GLUCOSE, FASTING 78 MG/DL (74-106); HDL CHOLESTEROL 68.9 MG/DL (>40); LDL CHOLESTEROL 114.3 MG/DL (<100); NON-HDL-C 130.1 MG/DL; POTASSIUM SERUM 4.9 MMOL/L (3.5-5.1); SODIUM LEVEL 141 MMOL/L (136-145); TOTAL PROTEIN 6.6 G/DL (5.7-8.2); TRIGLYCERIDES LEVEL 79 MG/DL (<150)
== END ==
LOC: M SFHCCLAY 10:50
PROVIDERS: ATTEND Nurse Practitioner Family
DX: I10 Essential (primary) hypertension (principal); R60.0 Localized edema

== ENCOUNTER → 2023-12-20 | Outpatient (CLI) | payer MEDICARE | LOC: M CLY 10:32 | PROVIDERS: ATTEND Nurse Practitioner Family | DX: M89.319 Hypertrophy of bone, unspecified shoulder (principal) ==

== ENCOUNTER → 2025-05-27 | Outpatient (REF) | payer MEDICARE | LOC: M SFHCCLAY 09:46 | PROVIDERS: ATTEND Nurse Practitioner Family | DX: Z53.9 Procedure and treatment not carried out, unspecified reason (principal) ==

== ENCOUNTER → 2025-05-29 | Outpatient (REF) | payer MEDICARE ==
[2025-05-29 18:27] LABS: ALT/SGPT 14.0 U/L (7.0-40); AST/SGOT 21.0 U/L (<34); CALCIUM LEVEL 9.1 MG/DL (8.3-10.6); CARBON DIOXIDE LEVEL 27.0 MMOL/L (20-31); CHLORIDE LEVEL 102.0 MMOL/L (98-107); CHOLESTEROL LEVEL 189.0 MG/DL (<200); CHOLESTEROL RISK RATIO 2.68 (<5); CREATININE FOR GFR 1.07 MG/DL (0.55-1.30); GLOMERULAR FILTRATION RATE 51.9 (>32); LDL CHOLESTEROL 101.7 MG/DL (<100); NON-HDL-C 118.7 MG/DL; POTASSIUM SERUM 5.7 MMOL/L (3.5-5.1); SODIUM LEVEL 135.0 MMOL/L (136-145); TRIGLYCERIDES LEVEL 85.0 MG/DL (<150)
[2025-05-29 18:49] LABS: ESTIMATED AVERAGE GLUCOSE 105.0 MG/DL (60-110)
== END ==
LOC: M SFHCCLAY 10:20
PROVIDERS: ATTEND Nurse Practitioner Family
DX: I10 Essential (primary) hypertension (principal); M15.9 Polyosteoarthritis, unspecified; R79.82 Elevated C-reactive protein (CRP); Z79.899 Other long term (current) drug therapy

== ENCOUNTER → 2025-05-31 | Outpatient (REF) | payer MEDICARE | LOC: M SFHCCLAY 07:38 | PROVIDERS: ATTEND Nurse Practitioner Family | DX: E87.5 Hyperkalemia (principal) ==